=== PATIENT | male | born 1955 | race Caucasian/White ===

== ENCOUNTER 2017-05-25 09:33 | Emergency (ER) | payer OTHER ==
[~2017-05-25] VITALS: Ht 180.3 cm; Wt 88.0 kg
--- NOTE | ~2017-05-25 | EKG ---
[place] [address] [facility] [place] [address] ELECTROCARDIOGRAM REPORT Name: STEPHEN YI Room #: [facility] M.R.#: [id number] Admission: Attend Phys: Discharge: Date of : 51 Report #: [id number] THIS REPORT FOR: //name// [facility] ED Test Date: 2017-05-25 Test Time: 10:00:22 Pat Name: STEPHEN YI Department: Room: Gender: M Food Beverage Server: [place] : 1955 Requested By: Yaakov Yap Order Number: [id number] MD: Logan Urrutia Measurements Intervals [place] Rate: 90 P: 49 MI: 140 QRS: 69 QRSD: 150 T: 4 QT: 375 QTc: 459 Interpretive Statements Sinus rhythm Right bundle branch block Abnormal inferior Q waves Electronically Signed On 05-25-2017 10:06:55 [employer] by Logan Urrutia [email or web address] <ELECTRONICALLY SIGNED> By: Logan Urrutia MD 05/25/17 1006 1000 [facility] Logan Urrutia MD /EPI
[~2017-05-25 09:33] MED LIST: ACTOS 45 MG45 M1 PO; AMARYL4 MG PO; ASPIRIN325 PO; GLUCOPHAGE1000 MG PO; GLUCOPHAGE500 MG PO; INSULIN SYRINGES; LANCETS; LANTUS SC; LIPITOR10 MG PO; LISINOPRIL-HCT1 EAC2 PO; NIACIN 500 MG500 M1 PO; NOVOLOG100 UNIT/1 SC; TEST STRIPS
[2017-05-25] MEDS ORDERED: LOSARTAN POTAS100 MG PO (10:04)
[2017-05-25] MEDS ORDERED: CRESTOR10 MG PO (10:04)
[2017-05-25 10:05] LABS: ABSOLUTE NEUTROPHILS 3.9 thou/uL (1.4-8.2); BASOPHILS 0.4 % (0.0-2.0); EOSINOPHILS 0.8 % (0.0-3.0); HEMATOCRIT 44.3 % (42.0-52.0); HEMOGLOBIN 15.7 gm/dL (14.0-18.0); MCH 30.1 pg (26.0-34.0); MCHC 35.3 g/dL (28.0-37.0); MONOCYTES 9.2 % (1.0-8.0); PLATELET COUNT 188 thou/uL (150-400); POLYS 64.6 % (36.0-66.0); RBC 5.21 mil/uL (4.50-6.00); RDW 12.7 % (10.5-14.5); WBC 6.1 thou/uL (4.0-11.0)
[2017-05-25] MEDS ORDERED: GLYBURIDE 5 MG T5 M1 PO (10:05)
[2017-05-25 10:15] LABS: ANION GAP 7 mmol/L (7-16); BUN 28 mg/dL (7-18); CALCIUM 9.9 mg/dL (8.5-10.1); CHLORIDE 100 mmol/L (98-107); CO2 28 mmol/L (21-32); CREATININE 1.3 mg/dL (0.7-1.3); POTASSIUM 4.6 mmol/L (3.5-5.1); SODIUM 135 mmol/L (136-145)
[2017-05-25 10:24] LABS: TROPONIN-I < 0.04 ng/mL (<0.06)
[2017-05-25 10:28] LABS: GLUCOSE 472 mg/dL (74-106)
[2017-05-25 10:56] LABS: APTT 26.1 Seconds (24.5-32.8); PROTIME 10.3 Seconds (9.3-11.4)
[2017-05-25 11:19] LABS: URINE BILIRUBIN NEGATIVE (Negative); URINE BLOOD TRACE (Negative); URINE CLARITY CLEAR; URINE COLOR YELLOW; URINE GLUCOSE-RANDOM* 3+ (Negative); URINE KETONES NEGATIVE (Negative); URINE LEUKOCYTES-REFLEX NEGATIVE (Negative); URINE NITRITE-REFLEX NEGATIVE (Negative); URINE PROTEIN (DIPSTICK) 2+ (Negative); URINE SPECIFIC GRAVITY 1.015 (1.005-1.035); URINE UROBILINOGEN 0.2 E.U./dl (0.2-1.0)
[2017-05-25 11:27] LABS: AMP/METHAMP Negative (Negative); BARBITURATES Negative (Negative); BENZODIAZEPINES Negative (Negative); COCAINE Negative (Negative); METHADONE Negative (Negative); OPIATES Negative (Negative); PCP Negative (Negative)
[2017-05-25 11:35] LABS: CASTS None Seen /LPF (None Seen); SQUAMOUS 0-3 Few /LPF (0-3)
[2017-05-25 11:36] LABS: BACTERIA-REFLEX None Seen /HPF (None Seen); CRYSTALS None Seen /LPF (None Seen); URINE RBC None Seen /HPF (0-2); URINE WBC-REFLEX None Seen /HPF (0-5)
== END 2017-05-25 12:15 | disposition short-term general hospital (02) ==
LOC: ER 09:33
PROVIDERS: Physician Assistant
DX: S06.6X0A Traumatic subarachnoid hemorrhage without loss of consciousness, initial encounter (principal); S00.93XA Contusion of unspecified part of head, initial encounter; R41.82 Altered mental status, unspecified; S06.5X0A Traumatic subdural hemorrhage without loss of consciousness, initial encounter; I10 Essential (primary) hypertension; E11.9 Type 2 diabetes mellitus without complications; E78.00 Pure hypercholesterolemia, unspecified; W00.0XXA Fall on same level due to ice and snow, initial encounter; Y93.89 Activity, other specified; Y92.89 Other specified places as the place of occurrence of the external cause; Y99.8 Other external cause status